=== PATIENT | female | born 1960 | race Caucasian/White ===

== ENCOUNTER 2021-07-27 22:55 | Emergency (ER) | payer BC ==
--- NOTE | 2021-07-27 23:35 | EDM.PDOC ---
ED HPI GENERAL MEDICAL PROBLEM - General Chief Complaint: Headache Stated Complaint: ASTHMA ATTACK Time Seen by Provider: 07/27/21 23:13 Source of Information: Reports: Patient History Limitations: Reports: No Limitations - History of Present Illness INITIAL COMMENTS - FREE TEXT/NARRATIVE: Patient presents the emergency room today secondary to concern about shortness of breath cough which has become productive today as well as decreased appetite with some nausea and a headache. She has been using home care measures to include her inhaler for cough and shortness of breath as well as acetaminophen for any headache or discomfort. She is concerned about Covid denies any Covid exposure PMH--HTN, asthma, hypothyroidism Meds--asa, maxide, levothyroxin, breo, albuterol hfa Allergy--Amox Onset Date: 07/25/21 headache Pain Score (Numeric/FACES): 2 - Related Data Allergies Allergy/AdvReac Type Severity Reaction Status Date / Time amoxicillin Allergy Rash Verified 07/27/21 23:36 Home Meds: Home Meds Albuterol Sulfate [Proair Respiclick] 2 inh IH Q6H 07/27/21 [History] Aspirin [Archer Aspirin EC] 81 mg PO DAILY 07/27/21 [History] Fluticasone/Vilanterol [Breo Ellipta 100-25 MCG Inhalation Kit] 1 inh INH DAILY 07/27/21 [History] Levothyroxine 112 mcg PO ACBREAKFAST 07/27/21 [History] Triamterene/Hydrochlorothiazid [Triamterene-HCTZ 37.5-25 MG] 1 cap PO DAILY 07/27/21 [History] ED ROS GENERAL - Review of Systems Review Of Systems: Comprehensive ROS is negative, except as noted in HPI. Constitutional: Reports: Fever, Chills HEENT: Reports: No Symptoms Respiratory: Reports: Shortness of Breath, Cough, Sputum (productive cough today). Denies: Wheezing Cardiovascular: Reports: No Symptoms Endocrine: Reports: No Symptoms GI/Abdominal: Reports: Decreased Appetite, Nausea. Denies: Vomiting : Reports: No Symptoms Musculoskeletal: Reports: No Symptoms Skin: Reports: No Symptoms Neurological: Reports: Headache ED EXAM, GENERAL - Physical Exam Exam: See Below Exam Limited By: No Limitations General Appearance: Alert, WD/WN, No Apparent Distress Eye Exam: Bilateral Eye: EOMI, Normal Inspection, PERRL Ears: Normal External Exam, Hearing Grossly Normal Nose: Normal Inspection Throat/Mouth: Normal Inspection, Normal Oropharynx, Normal Voice, No Airway Compromise Head: Atraumatic, Normocephalic Neck: Normal Inspection, Supple, Non-Tender, Full Range of Motion Respiratory/Chest: No Respiratory Distress, Lungs Clear, Normal Breath Sounds, No Accessory Muscle Use. No: Rhonchi, Wheezing Cardiovascular: Normal Peripheral Pulses, Regular Rate, Rhythm, No Edema, No Murmur, Tachycardia Peripheral Pulses: 2+: Radial (L), Radial (R) GI/Abdominal: Normal Bowel Sounds, Soft, Non-Tender (Female) Exam: Deferred Rectal (Female) Exam: Deferred Back Exam: Normal Inspection, Full Range of Motion Extremities: Normal Inspection, Normal Range of Motion, No Pedal Edema, Normal Capillary Refill Neurological: Alert, Oriented, Normal Cognition, Normal Gait, No Motor/Sensory Deficits Psychiatric: Normal Affect, Normal Mood Skin Exam: Warm, Intact, Normal Color Course - Vital Signs Last Recorded V/S: Last Vital Signs Temp 97.9 F 07/27/21 23:19 Pulse 123 H 07/27/21 23:19 Resp 16 07/27/21 23:19 BP 153/82 H 07/27/21 23:19 Pulse Ox 95 07/27/21 23:19 - Orders/Labs/Meds Labs: Laboratory Tests 07/27/21 Range/Units 23:36 SARS-CoV-2 RNA ([facility]) Negative (NEGATIVE) Departure - Departure Time of Disposition: 00:04 Disposition: Home, Self-Care 01 Condition: Good Clinical Impression: Person under investigation for COVID-19 - Discharge Information *PRESCRIPTION DRUG MONITORING PROGRAM REVIEWED*: Not Applicable *COPY OF PRESCRIPTION DRUG MONITORING REPORT IN PATIENT DENISSE: Not Applicable Instructions: Contact Precautions, How to Wear and Take Off Your Mask - CDC (12/30/2020), Symptoms of COVID-19 - CDC (11/22/2020) Referrals: Tatiana Alba PA-C [Primary Care Provider] - Forms: ED Department Discharge Additional Instructions: As discussed you are to remain on home isolation/self quarantine for the next 10 to 14 days unless today's test results returned negative. Any family members that live with you or have been in close contact with you in the last week should also do so if they are no longer in your household they can receive Covid testing 5 to 7 days after last exposure to you in order to clear there isolation/quarantine It is recommended that you continue to use acetaminophen (Tylenol) and/or ibuprofen (Advil, Motrin) as per label for any fevers chills body aches pain headache or discomforts otherwise. I provided you with a prescription strength dose of ibuprofen that you may use every 6 hours do not combine this with [id number] ibuprofen products. I provided you with a prescription for ondansetron (Zofran), please use this as labeled for any nausea vomiting or upset stomach. Is important that you stay well-hydrateddrinking plenty of fluids--water, juice, sports drinks of choice to stay well-hydrated other options include soups, popsicles, Jell-O. When you feel better your appetite will return start with a bland diet and advance slowly as tolerated As you mentioned you are monitoring your pulse oximetry at home. If this pulse oximetry drops below 90% without improvement or return to normal after rescue inhaler use then please follow-up with your primary care provider or return to the emergency room for further evaluation is time you may require oxygen therapy to assist with your recovery from respiratory illness We will contact you with your Covid test results tonight if you do not hear a phone call then you can contact the emergency room tomorrow morning to find out these results Sepsis Event Note (ED) - Evaluation Sepsis Screening Result: No Definite Risk
== END 2021-07-28 00:05 | disposition home or self-care (01) ==
LOC: JP.ED 22:55
DX: R06.02 Shortness of breath (principal); R05.9 Cough, unspecified; R51.9 Headache, unspecified; I10 Essential (primary) hypertension; J45.909 Unspecified asthma, uncomplicated; E03.9 Hypothyroidism, unspecified; Z88.0 Allergy status to penicillin; Z79.82 Long term (current) use of aspirin; Z79.899 Other long term (current) drug therapy; Z20.822 Contact with and (suspected) exposure to COVID-19
CPT/HCPCS: 99284; U0002